=== PATIENT | male | born 1995 | race Two or more races ===

== ENCOUNTER 2021-01-16 15:59 | Emergency (ER) | payer MEDICAID ==
--- NOTE | 2021-01-16 16:14 | NUR ---
CALLED IN ED WAITING ROOM. NO RESPONSE
--- NOTE | 2021-01-16 16:39 | NUR ---
CALLED TO TRIAGE,NO ANSWER
== END 2021-01-16 16:40 | disposition left against medical advice (07) ==
LOC: ER 16:03
DX: Z53.21 Procedure and treatment not carried out due to patient leaving prior to being seen by health care provider (principal)